=== PATIENT | female | born 1970 ===

== ENCOUNTER 2023-06-11 12:33 | Outpatient (CLI) | payer BC | END 2023-06-11 12:34 | disposition home or self-care (01) | LOC: ULT 12:33 | PROVIDERS: ATTEND Family Medicine | DX: R60.0 Localized edema (principal) ==

== ENCOUNTER 2024-04-08 09:16 | Outpatient (CLI) | payer BC | END 2024-04-08 09:17 | disposition home or self-care (01) | LOC: RAD 09:16 | PROVIDERS: ATTEND Family Medicine | DX: S90.01XA Contusion of right ankle, initial encounter (principal); M79.675 Pain in left toe(s); M20.12 Hallux valgus (acquired), left foot ==